=== PATIENT | female | born 1995 | race African-American/Black ===

== ENCOUNTER → 2016-08-03 13:09 | Outpatient (CLI) | payer BC ==
[~2016-08-03 13:09] MED LIST: IBUPROFEN600 MG PO; PERCOCET 5-3251 TAB PO; PRENATAL COMPLE1 TAB PO
[2016-08-13 05:11] VITALS: BMI 27.6
== END | disposition home or self-care (01) ==
LOC: D.LDO 13:09
DX: O36.5930 Maternal care for other known or suspected poor fetal growth, third trimester, not applicable or unspecified (principal); Z3A.36 36 weeks gestation of pregnancy; O41.03X0 Oligohydramnios, third trimester, not applicable or unspecified

== ENCOUNTER → 2016-08-06 13:55 | Outpatient (CLI) | payer MEDICARE ==
[2016-08-13 05:11] VITALS: BMI 27.6
== END | disposition home or self-care (01) ==
LOC: D.LDO 13:55
DX: O36.5930 Maternal care for other known or suspected poor fetal growth, third trimester, not applicable or unspecified (principal); Z3A.36 36 weeks gestation of pregnancy

== ENCOUNTER → 2016-08-10 13:32 | Outpatient (CLI) | payer MEDICARE ==
[2016-08-13 05:11] VITALS: BMI 27.6
== END | disposition home or self-care (01) ==
LOC: D.LDO 13:32
DX: O36.5930 Maternal care for other known or suspected poor fetal growth, third trimester, not applicable or unspecified (principal); Z3A.37 37 weeks gestation of pregnancy

== ENCOUNTER 2016-08-13 04:27 | Inpatient (IN) | payer MEDICARE ==
[~2016-08-13] VITALS: Ht 160 cm; Wt 70.8 kg
[2016-08-13] MEDS ORDERED: PRENATAL COMPLE1 TAB PO (04:45)
[2016-08-13 05:11] VITALS: BP 117/69; Ht 160 cm; Wt 70.8 kg
[2016-08-13 06:42] LABS: HEMATOCRIT 33.1 % (36.0-48.0); HEMOGLOBIN 10.6 g/dL (12-16); MCH 28.4 pg (26.0-34.0); MCV 88.7 fL (80.0-100.0); MEAN PLATELET VOLUME 11.9 fL (7.4-10.4); RBC 3.73 10x6/uL (4.00-5.40); WBC 12.8 10x3/uL (4.8-10.8)
[2016-08-13 06:59] LABS: APPEARANCE CLOUDY (CLEAR); BILIRUBIN NEGATIVE (NEGATIVE); COLOR YELLOW (YELLOW); GLUCOSE NEGATIVE (NEGATIVE); KETONE NEGATIVE (NEGATIVE); LEUKOCYTE ESTERASE 2+ (NEGATIVE); NITRITE NEGATIVE (NEGATIVE); PROTEIN TRACE mg/dL (NEGATIVE); SPECIFIC GRAVITY 1.015 (1.005-1.020); UROBILINOGEN NORMAL (NORMAL)
[2016-08-13 07:06] LABS: BACTERIA MODERATE /hpf (NONE SEEN); EPITHELIAL CELLS 0-5 /hpf (0-5); MUCUS <1+ /lpf (NONE SEEN); RED CELLS - URINE 0-5 /hpf (0-5); YEAST >1+ WITH HYPHAE /hpf (NONE SEEN)
[2016-08-13 19:07] VITALS: BP 113/59
--- NOTE | 2016-08-13 19:07 | NUR ---
RCVD PT FROM AM SHIFT RN. PT SITTING UP IN BED EATING MEAL. PT DENIES PAIN OR NEEDS AT THIS TIME. SHIFT ASSESSMENT COMPLETE AT THIS TIME. FUNDUS FIRM, U/1, SMALL LOCHIA RUBRA NOTED ON PERIPAD. PT REPORTS VOIDING. PERICARE TEACHING REINFORCED AT THIS TIME. PT VERBALIZED UNDERSTANDING. BREATH SOUNDS CLEAR =X2, PPP, S1, S2. PT HAS EPISIOTOMY WITH STITCHES INTACT. PT DENIES NEED FOR ICE PACK AT THIS TIME. ENCOURAGE PT TO TAKE MOTRIN FOR PAIN RATED 3/10 IN PERINEUM. PT IS AGREEABLE. PT DENIES ANY OTHER NEEDS. PLANS TO TRANSFER PT TO ROOM 1273.
--- NOTE | 2016-08-13 19:22 | NUR ---
MOTRIN 600MG X1 TAB GIVEN FOR PAIN RATED 3/10 IN PERINEUM. EPIFOAM, TUCKS, DERMABLAST PROVIDED PER ORDERS, SEE EMAR. PERICARE WITH MEDICATION TEACHING DONE AT THIS TIME. PT VERBALIZED UNDERSTANDING. PT HAS BEEN TRANSFERRED TO ROOM 1273 AND ORIENTED TO ROOM. PT DENIES FURTHER NEEDS AT THIS TIME. BED LOW, WHEELS LOCKED, CL IN REACH, SIDE RAILS UP X2.
--- NOTE | 2016-08-13 20:05 | NUR ---
ROUNDS MADE. PT LYING ON BACK WITH UP IN ARMS. HOB 30 DEGREES. FAMILY IN ROOM VISITING. PT RATES PAIN 0/10 CURRENTLY AND DENIES FURTHER NEEDS. WILL CONTINUE TO MONITOR.
--- NOTE | 2016-08-13 20:57 | NUR ---
MOM GIVEN PER ORDERS. SEE EMAR. INFANT SWADDLED PER PT REQUEST AND BEGINS TO ROOT. PT REQUESTS THIS RN TO HELP LATCH INFANT. INFANT LATCHED TO RT BREAST AND PT INSTRUCTED ON FEEDING TIMES. PT VERBALIZES UNDERSTANDING. PT DENIES FURTHER NEEDS AT THIS TIME. WILL CONTINUE TO MONITOR.
--- NOTE | 2016-08-13 21:39 | NUR ---
PT RINGS CL. RN TO BS. PT REQUEST TO GO BACK TO NBN STATES "I'LL SEE YOU IN THE MORNING." INFORMED PT THAT WILL BE BROUGHT TO HER FOR NEXT FEEDING IN ABOUT 2 HOURS DUE TO . PT VERBALIZED UNDERSTANDING. PT REQUESTS & RECEIVES MALICK MAYEN. DENIES FURTHER NEEDS OR PAIN AT THIS TIME. WILL CONTINUE TO MONITOR.
--- NOTE | 2016-08-13 22:14 | NUR ---
PT RINGS CL. THIS RN TO BEDSIDE. PT REQUESTS LIGHTS TO BE DIMMED. LIGHTS DIMMED. PT SAYS SHE'S GOING TO TRY TO GET SOME REST. DENIES PAIN OR NEEDS AT THIS TIME.
--- NOTE | 2016-08-13 23:55 | NUR ---
ROUNDS MADE. PT NOTED TO BE ASLEEP IN THE BED WITH IN ARMS. PLACED IN OPEN CRIB. PT STATES "WE TRIED TO FEED, BUT HE'S JUST CHILLIN'." PT SAYS SHE IS GOING TO USE THE BR. ADV PT TO LEAVE DOOR OPEN TO KEEP AN EYE ON BABY. PT VERBALIZED UNDERSTANDING. PT DENIES NEEDS OR PAIN AT THIS TIME.
--- NOTE | 2016-08-14 00:10 | NUR ---
ORANGE SHERBERT AND ICE WATER PROVIDED PER PT REQUEST. PT CURRENTLY . PT DENIES PAIN OR NEEDS AT THIS TIME. WILL CONTINUE TO MONITOR.
--- NOTE | 2016-08-14 00:16 | NUR ---
PT RINGS CL. THIS RN TO BS. PT SAYS "I'M FALLING ASLEEP." THIS RN REMAINS AT BEDSIDE TO ASSIST WITH . PT REPORTS INFANT FEEDING FOR 20 MINUTES ON RIGHT SIDE. ASSISTED PT WITH UNLATCHING, BURPING, AND SWITCHING INFANT TO LEFT SIDE TO LATCH. ADV PT TO CALL IF FURTHER ASSISTANCE IS NEEDED. PT VERBALIZED UNDERSTANDING.
--- NOTE | 2016-08-14 01:02 | NUR ---
PT RINGS CL. THIS RN TO BS. PT REQUESTS BE TAKEN TO NBN IN ORDER TO REST. PT DENIES PAIN OR FURTHER NEEDS. TRANSPORTED VIA OPEN CRIB TO NBN PER THIS RN.
--- NOTE | 2016-08-14 02:20 | NUR ---
INFANT TRANSPORTED VIA OPEN CRIB TO ROOM PER THIS RN. ID BANDS VERIFIED PER PROTOCOL. INFANT PLACED IN MOTHER'S ARMS. THIS RN ASSISTED WITH LATCHING TO LEFT BREAST. PERCOCET 5/325MG X1 TAB GIVEN FOR PAIN RATED 5/10 @ PERINEUM PER PT REQUEST. PT DENIES FURTHER NEEDS AT THIS TIME. WILL CONTINUE TO MONITOR.
--- NOTE | 2016-08-14 03:03 | NUR ---
PAIN REASSESSMENT COMPLETE. PT LYING ON BACK IN BED. HOB 45 DEGREES WITH INFANT ON CHEST AT THIS TIME. PT RATES PAIN 1/10 CURRENTLY AND DENIES FURTHER NEEDS.
--- NOTE | 2016-08-14 03:45 | NUR ---
2 CUPS SHERBERT AND FRESH ICE WATER SERVED PER PT REQUEST. PT UP TO BR. DENIES FURTHER NEEDS AT THIS TIME.
--- NOTE | 2016-08-14 05:33 | NUR ---
INFANT TRANSPORTED TO ROOM VIA OPEN CRIB PER THIS RN. ID BANDS VERFIED PER PROTOCOL. INFANT PLACED IN MOTHER'S ARMS PER PT REQUEST. PT DENIES PAIN OR FURTHER NEEDS.
--- NOTE | 2016-08-14 05:58 | NUR ---
PT RINGS CL. RN TO BS. PT REQUESTS TO GO TO NBN STATING "I'M GETTING SLEEPY." PT DENIES PAIN OR FURTHER NEEDS AT THIS TIME.
[2016-08-14 06:13] LABS: RAPID PLASMA REAGIN Non Reactive (Non Reactive)
[2016-08-14 07:00] LABS: BASOPHILS 0.1 % (0.0-2.0); EOSINOPHILS 0.8 % (0-7); HEMATOCRIT 29.6 % (36.0-48.0); HEMOGLOBIN 9.6 g/dL (12-16); IMMATURE GRANULOCYTES 1.2 % (0-5); LYMPHOCYTES 17.4 % (15-50); MCH 29.2 pg (26.0-34.0); MCHC 32.4 g/dL (31.0-37.0); MEAN PLATELET VOLUME 11.2 fL (7.4-10.4); MONOCYTES 12.4 % (2-11); NEUTROPHILS 68.1 % (40-80); PLATELET COUNT 214 10x3/uL (130-400); RBC 3.29 10x6/uL (4.00-5.40); RDW 16.3 % (11.5-14.5)
[2016-08-14 07:01] LABS: WBC 19.2 10x3/uL (4.8-10.8)
--- NOTE | 2016-08-14 07:14 | NUR ---
SLEEPING IN SEMI-FOWLERS POSITION, RESPIRATIONS EVEN, SIDE RAILS UP X 2, CALL LIGHT IN REACH. INFANT IN NURSERY. WILL COMPLETE SHIFT ASSESSMENT WHEN PATIENT IS AWAKE.
[2016-08-14 07:25] VITALS: BP 100/59
--- NOTE | 2016-08-14 07:55 | NUR ---
INFANT IN ROOM. MERT BOOGIE FROM NURSERY, ASSISTING WITH .
--- NOTE | 2016-08-14 08:30 | NUR ---
INFANT TO NURSERY. UP TO SHOWER. LINENS CHANGED VISITOR X 1 IN ROOM. NO REQUESTS AT THIS TIME. ENCOURAGED TO AMBULATE IN BRO.
--- NOTE | 2016-08-14 09:05 | NUR ---
AMBULATED IN BRO WITHOUT DIFFICULTY. NO REQUESTS.
--- NOTE | 2016-08-14 10:14 | NUR ---
RETURNED TO ROOM AFTER AMBULATING IN BRO AND RETURNING INFANT TO NURSERY VIA CRIB. REQUESTED SHERBERT AND MORE PERIPADS. NO ADDITIONAL REQUESTS OR COMPLAINTS AT THIS TIME.
--- NOTE | 2016-08-14 11:58 | NUR ---
SITTING UP IN BED EATING LUNCH. BOTTLEFED INFANT, VISITOR IN ROOM HOLDING INFANT. DENIES NEEDING ANYTHING AT THIS TIME. SIDE RAILS UP X 2, CALL LIGHT IN REACH.
--- NOTE | 2016-08-14 12:12 | NUR ---
MOTRIN 600 MG GIVEN PER REQUEST OF PATIENT FOR C/O 2/10 PERINEAL PAIN. VISITOR IN ROOM WITH IN ARMS, NO ADDITIONAL REQUESTS.
--- NOTE | 2016-08-14 13:58 | NUR ---
SLEEPING IN SEMI-FOWLERS POSITION, RESPIRATIONS EVEN. LIGHTS ON LOW. VISITOR IN ROOM HOLDING IN ARMS.
--- NOTE | 2016-08-14 14:23 | NUR ---
AMBULATING IN BRO. NO REQUESTS.
--- NOTE | 2016-08-14 15:36 | NUR ---
SITTING UP IN BED ATTEMPTING TO BOTTLEFEED INFANT. LIGHTS TURNED ON LOW SO WILL OPEN EYES, ASSISTED WITH WAKING . MOTHER NOW BOTTLEFEEDING. NO REQUESTS.
--- NOTE | 2016-08-14 17:37 | NUR ---
SITTING UP IN BED EATING DINNER. REQUESTED SHERBERT AND FRESH WATER. NO ADDITIONAL REQUESTS OR COMPLAINTS AT THIS TIME. IN CRIB NEXT TO BED. TO CALL IF ANYTHING IS NEEDED.
--- NOTE | 2016-08-14 18:51 | NUR ---
SITTING UP IN BED. REQUESTS TO GO TO NURSERY STATES "I'M GOING TO TAKE A NAP" DENIES NEEDING ANYTHING. SIDERAILS UP X 2, CALL LIGHT IN REACH. TO NURSERY.
[2016-08-14 19:24] VITALS: BP 108/55
--- NOTE | 2016-08-14 19:29 | NUR ---
PT RECEIVED TO MY CARE IN LDR 1273. PT RESTING IN BED IN SEMI-FOWLERS POSITION IN NO ACUTE DISTRESS. PT IS 21YO G1 NOW P1 WITH , WITH VACUUM ASSISTANCE, YESTERDAY @ 1435. ASSISTED WITH 2ND DEGREE MLE AND SUBSEQUENT REPAIR. MALE DELIVERED @ 38 WKS GESTATION. AAOX3. HR REGULAR. LUNGS CTAB. ABDOMEN SOFT AND NON TENDER. BS ACTIVE TIMES 4. FUNDUS FIRM AND ML @ U/-3. LOCHIA RUBRA SCANT. JEY PAD AND PANTIES IN PLACE. PERINIUM APPEARS TO BE INTACT WITH MINIMAL SWELLING NOTED. PT DENIES DIFFICULTY VOIDING. STATES SHE HAS PASSED GAS BUT HAS NOT HAD A BM SINCE . NO SWELLING NOTED TO UPPER OR LOWER EXTREMITIES BILATERALLY. NO IV ACCESS. PT RATES PAIN AT 2/10 AT THIS TIME. PT DENIES THE NEED FOR MEDICATION. POC DISCUSSED WITH PT, QUESTIONS ANSWERED. MEDICATION REGIMEN REVIEWED. ADDITIONAL BOTTLED WATER PROVIDED TO PT AT THIS TIME PER REQUEST. PT DENIES ANY FURTHER NEEDS. BED IN LOW POSITION, SIDE RAILS UP TIMES 2, CALL LIGHT AND PHONE IN REACH. FAMILY AT PT BS TIMES 1 FOR SUPPORT AND ASSISTANCE. WILL CONT TO MONITOR PT STATUS.
--- NOTE | 2016-08-14 19:44 | NUR ---
PT CALLS WITH C/O DIFFICULTY HAVING A BM. REQUESTS MEDICATION. 2100 DOSE OF MOM PROVIDED EARLY AT THIS TIME.
--- NOTE | 2016-08-14 20:30 | NUR ---
CALLED TO PT BS WITH C/O PAIN, RATES 12/27, REQUESTS MEDICATION. 1 TAB PERCOCET 10 AND 1 TAB IBUPROFEN PROVIDED TO PT AT THIS TIME WITH REQUESTED ICE CREAM. PT DENIES ANY FURTHER NEEDS AT THIS TIME. BED IN LOW POSITION, SIDE RAILS UP TIMES 2, CALL LIGHT AND PHONE IN REACH. WILL CONT TO MONITOR PT STATUS.
--- NOTE | 2016-08-14 20:37 | NUR ---
CALLED TO ROOM VIA CL. PT IN BATHROOM, REPORTS THAT SHE IS HAVING BM AT THIS TIME AND FORGOT TO GET PERIPADS AND PERIBOTTLE PRIOR TO GOING INTO BATHROOM. PERIBOTTLE PREPARED AND PERIPADS GIVEN TO PT. PT REQUESTS DEMONSTRATION OF USE OF TUXS PADS AND EPIFOAM ONCE FINISHES BM, INSTRUCTED TO USE CL LIGHT, VERBALIZED UNDERSTANDING.
--- NOTE | 2016-08-14 22:11 | NUR ---
RN TO PT BS FOR ROUNDS. PT RESTING IN BED IN SEMI-FOWLERS POSITION, HOLDING , IN NO ACUTE DISTRESS. RESPIRATIONS EVEN AND UNLABORED. BED IN LOW POSITION, SIDE RAILS UP TIMES 2, CALL LIGHT AND PHONE IN REACH. INFANT REMAINS AT PT BS COUPLET CARE. WILL CONT TO MONITOR PT STATUS.
--- NOTE | 2016-08-14 22:29 | NUR ---
PT AMBULATES TO NURSES STATION, REQUESTS NEW CONTAINER OF EPIFOAM. PROVIDED. PT DENIES ANY FURTHER NEEDS AT THIS TIME. WILL CONT TO MONITOR PT STATUS.
--- NOTE | 2016-08-15 00:44 | NUR ---
RN TO PT BS FOR ROUNDS. PT RESTING IN BED IN SEMI-FOWLERS POSITION, WITH EYES CLOSED, IN NO ACUTE DISTRESS. RESPIRATIONS EVEN AND UNLABORED. BED IN LOW POSITION, SIDE RAILS UP TIMES 2, CALL LIGHT AND PHONE IN REACH. WILL CONT TO MONITOR PT STATUS.
--- NOTE | 2016-08-15 02:27 | NUR ---
ROUNDS MADE. PT IN SEMI FOWLERS POSITION RESTING WITH EYES CLOSED. RESPIRATIONS REGULAR AND UNLABORED. NO S/S OF DISTRESS NOTED. BED IN LOW POSITION WITH CL/PHONE WITHIN REACH. UPPER SIDE RAILS RAISED X2. WILL CONT TO MONITOR AND ASSIST PRN.
--- NOTE | 2016-08-15 03:50 | NUR ---
RN TO PT'S BS. PT RESTING IN BED IN SEMI-FOWLERS POSITION, WITH EYES CLOSED, IN NO ACUTE DISTRESS. RESPIRATIONS EVEN AND UNLABORED. PT AWAKENS EASILY WHEN SPOKEN TO. PT INFORMED FEEDS @ 0400, MOTHER QUESTIONED TO WETHER SHE WANTED TO FEED THE INFANT OR DESIRED RN TO FEED INFANT. MOTHER REQUESTS RN TO BOTTLEFEED INFANT SO SHE CAN SLEEP. RN VERBALIZED UNDERSTANDING. BED IN LOW POSITION, SIDE RAILS UP TIMES 2, CALL LIGHT AND PHONE IN REACH. WILL CONT TO MONITOR PT STATUS.
[2016-08-15] MEDS ORDERED: IBUPROFEN600 MG PO (05:10)
[2016-08-15] MEDS ORDERED: PERCOCET 5-3251 TAB PO (05:10)
--- NOTE | 2016-08-15 05:20 | NUR ---
RN CALLED TO PT BS. PT REQUESTS INFANT BE TRANSPORTED TO NURSERY TO ALLOW HER TO REST. INFANT SWADDLED AND PLACED IN OPEN CRIB AND TRANSPORTED TO NURSERY FOR OBSERVATION. PT DENIES ANY FURTHER NEEDS AT THIS TIME. BED IN LOW POSITION, SIDE RAILS UP TIMES 2, CALL LIGHT AND PHONE IN REACH. WILL CONT TO MONITOR PT STATUS.
--- NOTE | 2016-08-15 07:45 | NUR ---
SITTING UP IN BED EATING BREAKFAST, REQUESTED PERCOCET FOR 4/10 PERINEAL PAIN. Idania COFFMAN RN FROM NURSERY HERE WITH INFANT PT PREPARING TO BREASTFEED. WILL COMPLETE SHIFT ASSESSMENT AFTER BREAKFAST/. SIDERAILS UP X 2, CALL LIGHT IN REACH.
--- NOTE | 2016-08-15 08:40 | NUR ---
SITTING UP IN BED WITH INFANT IN ARMS. SAYS HER PAIN IS NOW 0-1/10 ON PAIN SCALE. NO REQUESTS AT THIS TIME. INSTRUCTED TO LET RN KNOW WHEN READY FOR SITZ BATH AND SHOWER. ANTICIPATE DC HOME TODAY WITH .
[2016-08-15 09:00] VITALS: BP 108/59
--- NOTE | 2016-08-15 10:05 | NUR ---
INSTRUCTED ON SITZ BATH AND UP TO BATHROOM TO COMPLETE.
--- NOTE | 2016-08-15 10:20 | NUR ---
FINISHED SITZ BATH AND INTO SHOWER AT THIS TIME. IN NURSERY.
--- NOTE | 2016-08-15 10:42 | NUR ---
COMPLETED SHOWER AND DRESSED. READY TO GO HOME. DESIRES TDAP BEFORE DC. INFANT IN ROOM ALONG WITH VISITOR. WILL GIVE TDAP AND PROVIDE DC INSTRUCTIONS WHEN PT IS READY.
--- NOTE | 2016-08-15 12:11 | NUR ---
SITTING UP IN BED EATING LUNCH. TDAP GIVEN PER PT REQUEST IN LEFT DELTOID WITHOUT DIFFICULTY. WILL DC AFTER LUNCH.
--- NOTE | 2016-08-15 13:20 | NUR ---
D/C INSTRUCTIONS EXPLAINED TO PT. VOICED UNDERSTANDING. COPIES OF ALL GIVEN, WELL WRITTEN RX'S FOR PERCOCET [address] BHANDARI.
--- NOTE | 2016-08-15 13:30 | NUR ---
D/C'D HOME WITH , IN [place], VIA WC TO PRIVATE CAR.
== END 2016-08-15 13:30 | disposition home or self-care (01) | DRG 775 ==
LOC: D.LD 04:27
PROVIDERS: ADMIT Specialist
PROC: 10D07Z6 Extraction of Products of Conception, Vacuum, Via Natural or Artificial Opening (ICD-10-PCS; principal; 2016-08-13)
PROC: 0W8NXZZ Division of Female Perineum, External Approach (ICD-10-PCS; 2016-08-13)
DX: O99.824 Streptococcus B carrier state complicating childbirth (principal); Z3A.38 38 weeks gestation of pregnancy; Z37.0 Single live birth; O36.5930 Maternal care for other known or suspected poor fetal growth, third trimester, not applicable or unspecified; Z87.891 Personal history of nicotine dependence

== ENCOUNTER 2017-03-06 03:59 | Emergency (ER) | payer MEDICARE | END 2017-03-06 06:05 | disposition home or self-care (01) | LOC: D.ER 03:59 | DX: R07.89 Other chest pain (principal); F17.200 Nicotine dependence, unspecified, uncomplicated ==

== ENCOUNTER 2018-03-27 10:27 | Emergency (ER) | payer MEDICARE ==
[~2018-03-27] VITALS: Ht 160 cm; Wt 61.8 kg
[2018-03-27 10:29] VITALS: BP 114/76; Ht 160 cm; Wt 61.8 kg
[2018-03-27] MEDS ORDERED: VIBRAMYCIN 100100 MG PO (12:11)
[2018-03-27] MEDS ORDERED: PHENERGAN DM SYR5 ML PO (12:11)
[2018-03-27] MEDS ORDERED: ALBUTEROL SULF8.5 GM INH (12:11)
== END 2018-03-27 12:35 | disposition home or self-care (01) ==
LOC: D.ER 10:27
DX: J06.9 Acute upper respiratory infection, unspecified (principal); J40 Bronchitis, not specified as acute or chronic; R09.89 Other specified symptoms and signs involving the circulatory and respiratory systems; F17.200 Nicotine dependence, unspecified, uncomplicated

== ENCOUNTER 2018-11-16 23:25 | Emergency (ER) | payer MEDICARE ==
[~2018-11-16] VITALS: Ht 160 cm; Wt 61.4 kg
[~2018-11-16 23:25] MED LIST changes: +ALBUTEROL SULF8.5 GM INH; +PHENERGAN DM SYR5 ML PO; +VIBRAMYCIN 100100 MG PO
[2018-11-16 23:29] VITALS: Ht 160 cm; Wt 61.4 kg
[2018-11-17] MEDS ORDERED: VOLTAREN75 MG PO (00:58)
[2018-11-17] MEDS ORDERED: OMEPRAZOLE20 M1 PO (00:58)
[2018-11-17 01:35] VITALS: BP 139/77
== END 2018-11-17 01:35 | disposition home or self-care (01) ==
LOC: D.ER 23:25
DX: M25.561 Pain in right knee (principal)

== ENCOUNTER 2019-04-30 20:41 | Emergency (ER) | payer MEDICARE, MEDICAID ==
[~2019-04-30] VITALS: Ht 160 cm; Wt 67.7 kg
[~2019-04-30 20:41] MED LIST changes: +OMEPRAZOLE20 M1 PO; +VOLTAREN75 MG PO
[2019-04-30 20:48] VITALS: Ht 160 cm; Wt 67.7 kg
[2019-04-30] MEDS ORDERED: BUTALB-APAP-CA1 EACH PO (22:07)
[2019-04-30 22:20] VITALS: BP 130/81
== END 2019-04-30 22:20 | disposition home or self-care (01) ==
LOC: D.ER 20:41
DX: S09.8XXA Other specified injuries of head, initial encounter (principal); S00.83XA Contusion of other part of head, initial encounter; W22.8XXA Striking against or struck by other objects, initial encounter; R51 Headache; R42 Dizziness and giddiness